=== PATIENT | female | born 1955 | race Caucasian/White ===

== ENCOUNTER 2018-10-04 20:00 | Inpatient (IN) ==
[2018-10-04 20:49] LABS: BASOPHILS % (AUTO) 0.3 % (0.2-1.0); EOSINOPHILS % (AUTO) 0.3 % (0.9-2.9); HEMOGLOBIN 11.4 g/dL (12.0-16.0); LYMPHOCYTES # (AUTO) 1.2 X10^3/uL (1.3-2.9); LYMPHOCYTES % (AUTO) 9.1 % (21.0-51.0); MEAN CORPUSCULAR HGB CONC 33.6 g/dL (33.0-35.0); MEAN CORPUSCULAR VOLUME 86.1 fL (80.0-100.0); MONOCYTES # (AUTO) 1.1 x10^3/uL (0.3-0.8); MONOCYTES % (AUTO) 8.1 % (0.0-13.0); NEUTROPHILS # (AUTO) 11.1 x10^3/uL (2.2-4.8); NEUTROPHILS % (AUTO) 82.2 % (42.0-75.0); PLATELET COUNT 392 X10^3/uL (150.0-450.0); RED BLOOD COUNT 3.95 X10^6/uL (3.5-5.4); RED CELL DISTRIBUTION WIDTH 13.3 % (11.6-16.5); WHITE BLOOD COUNT 13.4 X10^3/uL (3.6-10.0)
[2018-10-04 20:56] LABS: ALBUMIN 2.4 g/dL (3.4-5.0); CALCIUM 9.2 mg/dL (8.5-10.1); CARBON DIOXIDE 24.6 mmol/L (21-32); COR CA(FOR HYPOALB) 10.5 mg/dL (8.5-10.1); CREATININE 1.23 mg/dL (0.55-1.02); TOTAL PROTEIN 7.4 g/dL (6.4-8.2)
[2018-10-04] MEDS ORDERED: ROCEPHIN VIAL 1 GRAM IVP ONE (21:53)
[2018-10-04] MEDS ORDERED: NS 1000 ML 1,000 ML IV SCH (22:00)
--- NOTE | 2018-10-04 22:03 | DR.SOBA ---
HPI - Time Seen Time seen: 21:55 - Primary Care Physician Primary Care Physician: KARRIE - Complaints Chief Complaint Doctors Comments: Patient states she has had a cough, cold, wheezing for the past seven days with chills. States she is a patient of Dr. Pratt in [address] and she has diabetes but do not take any medicines for her diabetes. states they gave her a nebulizer treatment in the ambulance enroute to the emergency room and put her on oxygen. States she has had a "brain bleed" as related by family members and she was in [facility] and is to go back in the future. States she has had a biopsy of her lungs that did not show cancer. She denies tobacco or alcohol usage. Chief Complaint:: C/C/C, PRODUCTIVE COUGH-GREEN,YELLOW. FEVER O/S 1 WEEK AGO. PATIENT DENIES ANY PAIN. - Reviewed Nurses Notes Reviewed: Yes - Source History Provided: Patient, EMS - Mode of Arrival Mode of Arrival: EMS - Timing Onset of Chief Complaint: 09/27/18 - Duration Duration: Days (7) - Context Onset:: At Rest PE Risk Factors:: None History of:: None Currently on:: Neither Prehospital Care:: O2, Inhaled B2 - Modifying Factors Worsens:: Exertion Improves:: Nothing - Associated Signs and Symptoms Associated Signs and Symptoms: Fever, Wheeze, Cough, Sore Throat. denies: None, Nasal Congestion, Hemoptysis, Chest Pain, Leg Swelling, Calf Pain, Anxiety, Numbness, Perioral Numbness, Hands Numbness, Feet Numbness - If Chest Pain Quality: Sharp Location: Left Upper Chest, Chest Wall - If Cough Cough: Yellow PMH - PMH Past Medical History: Yes Past Medical History: [place], Coronary Artery Disease, Hypertension, Dyslipidemia, Diabetes, CVA, Kidney Stones Past Surgical History: Yes Surgical History: Abdominal Surgery, Angioplasty/Stents, Cholecystectomy, [employer] Surgery Past Surgical History Comment: TUBALIGATION - Family History History of Family Medical Conditions: Yes Family Medical History: [place], Coronary Artery Disease - Social History Does patient currently use any type of tobacco product: No Have you used tobacco products in the last 12 months: No Type of Tobacco Use: None Does any household member use tobacco: No Alcohol Use: None Do you use any recreational Drugs:: No Lives With: Family Lives Where: Home - infectious screening In the last 2 months have you had wt loss of >10#?: NO Have you had fever, night sweats or hemotysis?: No Have you traveled outside the country in the last 6 months?: No Isolation: Standard ROS - Review of Systems Constitutional: No Symptoms Reported, Fever, Weakness, Loss of Appetite Eyes: No Symptoms Reported ENTM: No Symptoms Reported Respiratoy: No Symptoms Reported, Productive Cough, Short of Breath, Wheezing. negative: See HPI, Non-Productive Cough, Moist Cough, Dry Cough, Hacking Cough, Barking Cough, Brassy Cough, Orthopnea, Stridor, Hemoptysis, Other Cardiovascular: No Symptoms Reported. negative: See HPI, Chest Pain, Edema, Palpitations, Syncope, Cyanosis, Skin Mottling, Other Gastrointestinal/Abdominal: No Symptoms Reported. negative: See HPI, Abdominal Pain, Constipation, Diarrhea, Nausea, Vomiting, Food Intolerance, Other Genitourinary: No Symptoms Reported Neurological: No Symptoms Reported. negative: See HPI, Anxiety, Depressed, Emotional Problems, Headache, Numbness, Paresthesia, Pre-existing Deficit, Seizure, Tingling, Tremors, Weakness, Dizziness, Problems Walking, Speech Problem, Other Musculoskeletal: No Symptoms Reported Integumentary: No Symptoms Reported. negative: See HPI, Change in Color, Change in Hair/Nails, Dryness, Lesions, Lumps, Rash, Itching, Wound, Bruises, Juandice, Other Hematologic/Lymphatic: No Symptoms Reported Endocrine: No Symptoms Reported Psychiatric: No Symptoms Reported. negative: See HPI, Anxiety, Depression, Hallucinations, Excessive crying, Suicidal, Other PE - General Limitations: No Limitations General Appearance: Alert, In Distress (moderate) - Head Head Exam: Normal Inspection, Atraumatic, Normocephalic - Eyes Eye exam: Normal Appearance, PERRL, EOMI. negative: Scleral Icterus, Conjunctival Injection, Nystagmus, Miosis, Mydrasis, Periorbital Swelling, Periorbital Tenderness, Other - ENT ENT Exam: Normal Exam, Normal Oropharynx, Normal External Ear Exam, Mucous Membranes Moist, TM's Normal Bilaterally - Neck Neck Exam: Normal Inspection, Full ROM, Trachea Midline. negative: Tenderness, Meningismus, Lymphadenopathy, Thyromegaly, Other - Chest Chest Inspection: Normal Inspection, Symmetric Chest Wall Rise. negative: Tenderness, Rash, Abscess, Other - Respiratory Respiratory Exam: Normal Lung Sounds Bilat, Prolonged Expiratory Phase Respiratory Exam: Bilateral Wheezing, Bilateral Decreased Breath Sounds - Cardiovascular Cardiovascular Exam: Regular Rate, Normal Rhythm, Normal Heart Sounds - Abdominal Exam Abdominal Exam: Normal Inspection, Normal Bowel Sounds, Soft. negative: Distention, Tenderness, Guarding, Rebound, Rigidity, Dimnished Bowel Sounds, Hyperactive Bowel Sounds, Hypoactive Bowel Sounds, Organomegaly, Trauma, Incision, Ascites, Mass, Bruit, Pulsatile Mass, Hernia, Other Abdominal Tenderness: negative: RUQ, RLQ, LUQ, LLQ, Epigastrium, Suprapubic, Diffuse, Mild, Moderate, Severe, Other - Extremities Extremities Exam: Normal Inspection, Full ROM, Normal Capillary Refill. negative: Tenderness, Edema, Joint Swelling, Calf Tenderness, Other - Back Back Exam: Normal Inspection, Full ROM. negative: Tenderness, (R) CVA Tenderness, (L) CVA Tenderness, Muscle Spasm, Paraspinal Tenderness, Vertebral Tenderness, Rashes, (R) Sciatic Notch Tenderness, (L) Sciatic Notch Tendern, (R) Straight Leg Raise, (L) Straight Leg Raise, Other - Neurologic Neurological Exam: Alert, Oriented X3, CN II-XII Intact, Normal Gait, Reflexes Normal - Psychiatric Psychiatric Exam: Normal Affect, Normal Mood - Skin Skin Exam: Warm, Dry, Intact, Normal Color - Vital Signs Vitals: Temperature 102.3 F Pulse Rate 95 Respiratory Rate 16 Blood Pressure [Left Arm] 187/86 Blood Pressure 182/86 O2 Sat by Pulse Oximetry 95 Course - Reevaluation 1st: Improved - Consultation Called: 22:47 Call Returned: 22:47 (Dr. Gordon to admit) - Education/Counseling Education/Counseling: Patient, Family Educated On: Treatment, Diagnosis, Needs for Follow Up ROR - Labs Reviewed Laboratory Results Reviewed?: Yes (All labs and x-ray results reviewed and discussed with patient) Result Diagrams: 10/04/18 20:34 10/04/18 20:34 - XRAY XRAY Interpreted by: Radiologist (CXR: Left lower lung opacity. Cardiomegaly and mild COPD. LLL pneumonia) - Labs Reviewed Laboratory: WBC 13.4 X10^3/uL (3.6-10.0) H 10/04/18 20:34 RBC 3.95 X10^6/uL (3.5-5.4) 10/04/18 20:34 Hgb 11.4 g/dL (12.0-16.0) L 10/04/18 20:34 Hct 34.0 % (36.0-47.0) L 10/04/18 20:34 MCV 86.1 fL (80.0-100.0) 10/04/18 20:34 MCH 29.0 pg (27.0-34.0) 10/04/18 20:34 MCHC 33.6 g/dL (33.0-35.0) 10/04/18 20:34 RDW 13.3 % (11.6-16.5) 10/04/18 20:34 Plt Count 392 X10^3/uL (150.0-450.0) 10/04/18 20:34 MPV 9.0 fL (7.4-11.0) 10/04/18 20:34 Neut % (Auto) 82.2 % (42.0-75.0) H 10/04/18 20:34 Lymph % (Auto) 9.1 % (21.0-51.0) L 10/04/18 20:34 Story % (Auto) 8.1 % (0.0-13.0) 10/04/18 20:34 Eos % (Auto) 0.3 % (0.9-2.9) L 10/04/18 20:34 Baso % (Auto) 0.3 % (0.2-1.0) 10/04/18 20:34 Neut # (Auto) 11.1 x10^3/uL (2.2-4.8) H 10/04/18 20:34 Lymph # (Auto) 1.2 X10^3/uL (1.3-2.9) L 10/04/18 20:34 Story # (Auto) 1.1 x10^3/uL (0.3-0.8) H 10/04/18 20:34 Eos # (Auto) 0.0 x10^3/uL (0.0-0.2) 10/04/18 20:34 Baso # (Auto) 0.0 X10^3/uL (0.0-0.1) 10/04/18 20:34 Absolute Nucleated RBC 0.0 /100WBC 10/04/18 20:34 Sodium 136 mmol/L (136-145) 10/04/18 20:34 Corrected Sodium 140 mmol/L (136-145) 10/04/18 20:34 Potassium 3.9 mmol/L (3.5-5.1) 10/04/18 20:34 Chloride 99 mmol/L (98-107) 10/04/18 20:34 Carbon Dioxide 24.6 mmol/L (21-32) 10/04/18 20:34 BUN 13 mg/dL (7-18) 10/04/18 20:34 Creatinine 1.23 mg/dL (0.55-1.02) H 10/04/18 20:34 Est GFR (MDRD) Af Amer 57 (>60) L 10/04/18 20:34 Est GFR (MDRD) Non-Af 47 (>60) L 10/04/18 20:34 Glucose 265 mg/dL (65-99) H 10/04/18 20:34 Lactic Acid 0.7 mmol/L (0.4-2.0) 10/04/18 20:35 Calcium 9.2 mg/dL (8.5-10.1) 10/04/18 20:34 Corrected Calcium 10.5 mg/dL (8.5-10.1) H 10/04/18 20:34 Total Bilirubin 0.30 mg/dL (0.2-1.0) 10/04/18 20:34 AST 80 Units/L (15-37) H 10/04/18 20:34 ALT 83 Units/L (12-78) H 10/04/18 20:34 Alkaline Phosphatase 247 Units/L (46-116) H 10/04/18 20:34 Total Protein 7.4 g/dL (6.4-8.2) 10/04/18 20:34 Albumin 2.4 g/dL (3.4-5.0) L 10/04/18 20:34 Globulin 5.0 g/dL (2.5-4.5) H 10/04/18 20:34 Albumin/Globulin Ratio 0.5 Ratio (1.1-2.1) L 10/04/18 20:34 Specimen Type Random urine 10/04/18 22:11 Urine Color Yellow (YELLOW) 10/04/18 22:11 Urine Appearance Clear (CLEAR) 10/04/18 22:11 Urine pH 6.5 (5.0 - 8.0) 10/04/18 22:11 Ur Specific [place] 1.010 (1.000-1.030) 10/04/18 22:11 Urine Protein 3+ (NEGATIVE) 10/04/18 22:11 Urine Glucose (UA) 3+ (NEGATIVE) 10/04/18 22:11 Urine Ketones Negative (NEGATIVE) 10/04/18 22:11 Urine Occult Blood 2+ (NEGATIVE) 10/04/18 22:11 Urine Nitrite Negative (NEGATIVE) 10/04/18 22:11 Urine Bilirubin Negative (NEGATIVE) 10/04/18 22:11 Urine Urobilinogen 1+ (NORMAL) 10/04/18 22:11 Ur Leukocyte Esterase Negative (NEGATIVE) 10/04/18 22:11 Urine RBC 3-5 /HPF (NONE SEEN) 10/04/18 22:11 Urine WBC None seen /HPF (NONE SEEN) 10/04/18 22:11 Ur Squamous Epith Cells Few /HPF (NEGATIVE) 10/04/18 22:11 Urine Bacteria Trace /HPF (NEGATIVE) 10/04/18 22:11 Ur Culture Indicated? No/not indicated 10/04/18 22:11 - Diagnosis Discharge Problem: COPD with acute exacerbation, Essential hypertension Pneumonia Qualifiers: Pneumonia type: due to unspecified organism Diabetes mellitus Qualifiers: Diabetes mellitus type: type 2 - Discharge Plan Disposition: 09 ADMITTED INPATIENT Condition: Stable - Follow ups/Referrals Follow ups/Referrals: NFD,None [Primary Care Provider] - 3 days - Instructions
[2018-10-04] MEDS ORDERED: ROCEPHIN VIAL 1 GRAM ONE (22:12)
[2018-10-04] MEDS ORDERED: SALINE 3% 15 ML NEB TX ONE (22:23)
[2018-10-04 22:27] LABS: BILIRUBIN,URINE NEGATIVE (NEGATIVE); BLOOD/HEMOGLOBIN,URINE 2+ (NEGATIVE); GLUCOSE, URINE 3+ (NEGATIVE); KETONES,URINE NEGATIVE (NEGATIVE); LEUKOCYTE ESTERASE ,URINE NEGATIVE (NEGATIVE); NITRITES,URINE NEGATIVE (NEGATIVE); PH,URINE 6.5 (5.0 - 8.0); PROTEIN,URINE 3+ (NEGATIVE); UROBILINOGEN,URINE 1+ (NORMAL)
--- NOTE | 2018-10-04 22:31 | RAD ---
Chest PA and lateral Indication: Coughing congestion. Findings: There is no pneumothorax. There is left lower lung opacity. Cardiomegaly and mild COPD background suggested. Impression: Left lower lung pneumonia favored. Follow-up to resolution to exclude underlying lesion. Reported By:
[2018-10-04 22:33] LABS: APPEARANCE,URINE CLEAR (CLEAR); BACTERIA,URINE TRACE /HPF (NEGATIVE); COLOR,URINE YELLOW (YELLOW); SQUAMOUS EPITHELIAL CELL,UR FEW /HPF (NEGATIVE)
[2018-10-04] MEDS ORDERED: SALINE 3% 15 ML NEB TX NEB ONE (22:34)
[2018-10-05] MEDS ORDERED: NS 1/2 1000 ML IV 1,000 ML ONE ×2 (00:16→16:13)
[2018-10-05] MEDS: NS 1/2 1000 ML IV 1,000 ML IV SCH ×2 (00:23→16:32)
[2018-10-05] MEDS: LEVAQUIN PREMIX IV 750 MG 750 MG/150 ML BAG IV SCH ×2 (00:23→23:21)
[2018-10-05] MEDS: TUSSIONEX PENNKINETIC SUSP PO PRN (00:41)
[2018-10-05 01:02] VITALS: BMI 22.8
[2018-10-05] MEDS ORDERED: TYLENOL 325 MG TAB PO ONE (01:14)
[2018-10-05] MEDS: TYLENOL 325 MG TAB PO PRN ×2 (01:23→09:53)
[2018-10-05] MEDS: DUONEB 0.5 MG/3 MG NEB SCH ×6 (01:55→21:01)
[2018-10-05 05:25] LABS: ALANINE AMINOTRANSFERASE 67 Units/L (12-78); ALKALINE PHOSPHATASE 211 Units/L (46-116); ASPARTATE AMINO TRANSFERASE 53 Units/L (15-37); BLOOD UREA NITROGEN 14 mg/dL (7-18); CALCIUM 8.7 mg/dL (8.5-10.1); CARBON DIOXIDE 25.8 mmol/L (21-32); CHLORIDE 101 mmol/L (98-107); COR CA(FOR HYPOALB) 10.3 mg/dL (8.5-10.1); COR NA(FOR HYPERGLY) 140 mmol/L (136-145); CREATININE 1.05 mg/dL (0.55-1.02); SODIUM 136 mmol/L (136-145); TOTAL PROTEIN 6.6 g/dL (6.4-8.2); eGFR NON BLACK RACES 56 (>60)
[2018-10-05 05:29] LABS: BASOPHILS # (AUTO) 0.1 X10^3/uL (0.0-0.1); BASOPHILS % (AUTO) 0.5 % (0.2-1.0); EOSINOPHILS % (AUTO) 0.1 % (0.9-2.9); HEMATOCRIT 31.1 % (36.0-47.0); HEMOGLOBIN 10.5 g/dL (12.0-16.0); LYMPHOCYTES # (AUTO) 1.2 X10^3/uL (1.3-2.9); LYMPHOCYTES % (AUTO) 9.8 % (21.0-51.0); MEAN CORPUSCULAR HEMOGLOBIN 29.6 pg (27.0-34.0); MEAN CORPUSCULAR HGB CONC 33.7 g/dL (33.0-35.0); MEAN CORPUSCULAR VOLUME 87.8 fL (80.0-100.0); MEAN PLATELET VOLUME 9.5 fL (7.4-11.0); MONOCYTES % (AUTO) 8.3 % (0.0-13.0); NEUTROPHILS # (AUTO) 9.9 x10^3/uL (2.2-4.8); NEUTROPHILS % (AUTO) 81.3 % (42.0-75.0); PLATELET COUNT 357 X10^3/uL (150.0-450.0); RED BLOOD COUNT 3.55 X10^6/uL (3.5-5.4); RED CELL DISTRIBUTION WIDTH 13.5 % (11.6-16.5); WHITE BLOOD COUNT 12.2 X10^3/uL (3.6-10.0)
[2018-10-05] MEDS: HumuLIN R SC PRN ×3 (06:16→22:00)
[2018-10-05 08:20] LABS: ABG ALLEN TEST POS; ABG BASE EXCESS 0.9 mmol/L (-2.0-2.0); ABG HCO3 26.6 mmol/L (22-26)
--- NOTE | 2018-10-05 09:09 | DR.H&P ---
H&P - History & Physical for Day of: H&P Date: 10/04/18 - Chief Complaint Chief Complaint: fever, ccc - History of Present Illness History of Present Illness: 63 WF ER ADMISSION WITH CO she has had a cough, cold, wheezing for the past seven days with chills. States she is a patient of Dr. Pratt in [place] and she has diabetes but do not take any medicines for her diabetes. states they gave her a nebulizer treatment in the ambulance enroute to the emergency room and put her on oxygen. States she has had a "brain bleed" as related by family members and she was in [facility] and is to go back in the future. States she has had a biopsy of her lungs that did not show cancer. She denies tobacco or alcohol usage. - Past Medical History Past Medical History: [place], Coronary Artery Disease, Hypertension, Dyslipidemia, Diabetes, CVA, Kidney Stones - Past Surgical History Surgical History: Other - Family History Family Medical History: Diabetes Mellitus, Cancer, [place] - Social History Does patient currently use any type of tobacco product: No Have you used tobacco products in the last 12 months: No Type of Tobacco Use: None Does any household member use tobacco: No Alcohol Use: None Drug Use: None - Medications Home Medications: No Known Drug Allergies Allergy (Verified 10/04/18 20:22) CONTINUE taking the following medications atorvastatin 40 mg PO QHS 10/04/18 [History] - Review of Systems Constitutional: Fever, Weakness Eyes: No Symptoms Reported ENT: No Symptoms Reported Respiratory: Cough, Sputum, Wheezing Cardiovascular: No Symptoms Reported Gastrointestinal: Nausea Genitourinary: No Symptoms Reported Musculoskeletal: No Symptoms Reported Skin: No Symptoms Reported Neurological: No Symptoms Reported - Physical Exam Vital Signs: Temperature 98.4 F Pulse Rate [Right] 65 Pulse Rate 70 Respiratory Rate 20 Blood Pressure [Right Arm] 105/51 Blood Pressure [Left Arm] 187/86 Blood Pressure 182/86 O2 Sat by Pulse Oximetry 95 Oriented: Normal Eyes: Normal Ear: Normal Nose: Normal Throat: Normal Respiratory: Rhonchi Throughout, RLL Diminished, LLL Diminished Cardiovascular: Normal : Normal Auscultation: Bowel Sounds: Normal Palpation: Normal Tenderness: Normal Skin: Normal Musculoskeletal: Normal Psychiatric: Normal Speech Pattern: Clear, Appropriate - Assessment/Plan (1) Pneumonia Qualifiers: Pneumonia type: due to unspecified organism Status: Acute Plan: PNEUMONIA PROTOCOL, IV ATBX. RESP THERAPY. SUPPLEMENTAL O2. SPUTUM, BLOOD CULTURE (2) COPD with acute exacerbation Status: Acute (3) Diabetes mellitus Qualifiers: Diabetes mellitus type: type 2 Status: Acute (4) Essential hypertension Status: Acute - Allergies Allergies/Adverse Reactions: Allergies Allergy/AdvReac Type Severity Reaction Status Date / Time No Known Drug Allergies Allergy Verified 10/04/18 20:22
[2018-10-05] MEDS ORDERED: PREVNAR 13 IM ONE (09:30)
[2018-10-05] MEDS: ROBITUSSIN DM PO SCH ×4 (09:34→21:17)
[2018-10-05] MEDS: ROCEPHIN VIAL 1 GRAM IVP SCH (09:35)
[2018-10-06] MEDS: DUONEB 0.5 MG/3 MG NEB SCH ×6 (00:35→20:40)
[2018-10-06] MEDS: NS 1/2 1000 ML IV 1,000 ML IV SCH ×3 (03:45→18:04)
[2018-10-06 04:51] LABS: BASOPHILS % (AUTO) 0.4 % (0.2-1.0); EOSINOPHILS # (AUTO) 0.1 x10^3/uL (0.0-0.2); EOSINOPHILS % (AUTO) 1.2 % (0.9-2.9); HEMATOCRIT 30.8 % (36.0-47.0); HEMOGLOBIN 10.3 g/dL (12.0-16.0); LYMPHOCYTES # (AUTO) 1.1 X10^3/uL (1.3-2.9); LYMPHOCYTES % (AUTO) 12.1 % (21.0-51.0); MEAN CORPUSCULAR HEMOGLOBIN 29.2 pg (27.0-34.0); MEAN CORPUSCULAR HGB CONC 33.4 g/dL (33.0-35.0); MEAN CORPUSCULAR VOLUME 87.4 fL (80.0-100.0); MONOCYTES # (AUTO) 0.7 x10^3/uL (0.3-0.8); MONOCYTES % (AUTO) 8.2 % (0.0-13.0); NEUTROPHILS % (AUTO) 78.1 % (42.0-75.0); PLATELET COUNT 378 X10^3/uL (150.0-450.0); RED BLOOD COUNT 3.52 X10^6/uL (3.5-5.4); RED CELL DISTRIBUTION WIDTH 13.6 % (11.6-16.5)
[2018-10-06 05:06] LABS: ALANINE AMINOTRANSFERASE 49 Units/L (12-78); ALBUMIN 1.9 g/dL (3.4-5.0); ALKALINE PHOSPHATASE 186 Units/L (46-116); ASPARTATE AMINO TRANSFERASE 27 Units/L (15-37); BLOOD UREA NITROGEN 13 mg/dL (7-18); CALCIUM 8.7 mg/dL (8.5-10.1); CHLORIDE 103 mmol/L (98-107); COR CA(FOR HYPOALB) 10.4 mg/dL (8.5-10.1); COR NA(FOR HYPERGLY) 140 mmol/L (136-145); CREATININE 0.97 mg/dL (0.55-1.02); SODIUM 138 mmol/L (136-145); TOTAL PROTEIN 6.4 g/dL (6.4-8.2); eGFR NON BLACK RACES > 60 (>60)
[2018-10-06] MEDS: HumuLIN R SC PRN ×3 (06:33→16:26)
--- NOTE | 2018-10-06 07:39 | CT ---
HISTORY: Pneumonia. COPD exacerbation. Questionable lesion on chest radiograph. Study: CT chest without contrast. Dose reduction techniques including Automated Exposure Control (AEC) and adjustment of mA and kV were utilized. Comparison: Chest radiograph dated 10/04/2018. Technique: Multiple axial images of the chest were obtained from the thoracic inlet to the upper abdomen without the administration of IV contrast. Findings: Examination is severely limited given the lack of intravenous contrast. Included portions of the thyroid are grossly unremarkable. There is atherosclerotic disease of the nonaneurysmal thoracic aorta. The heart is at the upper limits of normal in size with small pericardial effusion present. There is no mediastinal or hilar lymphadenopathy evident given the lack of intravenous contrast. Included portions of the upper abdomen demonstrate pneumobilia within the left hepatic lobe. There are calcifications of the visualized portions of the abdominal aorta and splenic artery. There is mild spondylosis of the mid to lower thoracic spine. No acute bony abnormality is evident. Evaluation of the lung parenchyma demonstrates scattered opacities within the posterior segment of the left upper lobe with more dense consolidation noted throughout the left lower lobe. An underlying mass is not excluded. There is a small left pleural effusion. IMPRESSION: Limited examination given the lack of intravenous contrast. Left lower lobe consolidation with patchy opacities in the left upper lobe most compatible with pneumonia. Underlying mass cannot be excluded and follow-up to complete resolution is recommended. Nonspecific pneumobilia involving the left hepatic lobe which can be seen in the setting of prior sphincterotomy. Clinical correlation is requested. Reported By:
[2018-10-06] MEDS ORDERED: NS 1/2 1000 ML IV 1,000 ML ONE (09:14)
[2018-10-06] MEDS: ROBITUSSIN DM PO SCH ×4 (09:17→21:30)
[2018-10-06] MEDS: ROCEPHIN VIAL 1 GRAM IVP SCH (09:18)
[2018-10-06] MEDS: LEVAQUIN PREMIX IV 750 MG 750 MG/150 ML BAG IV SCH (12:52)
[2018-10-06] MEDS ORDERED: LEVAQUIN PREMIX IV 750 MG 750 MG/150 ML BAG IV SCH (21:00)
[2018-10-06] MEDS: TYLENOL 325 MG TAB PO PRN (21:30)
[2018-10-07] MEDS: DUONEB 0.5 MG/3 MG NEB SCH ×6 (00:10→20:51)
[2018-10-07 05:22] LABS: BASOPHILS # (AUTO) 0.1 X10^3/uL (0.0-0.1); BASOPHILS % (AUTO) 0.8 % (0.2-1.0); EOSINOPHILS # (AUTO) 0.1 x10^3/uL (0.0-0.2); EOSINOPHILS % (AUTO) 1.9 % (0.9-2.9); HEMATOCRIT 31.3 % (36.0-47.0); HEMOGLOBIN 10.4 g/dL (12.0-16.0); LYMPHOCYTES # (AUTO) 1.1 X10^3/uL (1.3-2.9); LYMPHOCYTES % (AUTO) 13.7 % (21.0-51.0); MEAN CORPUSCULAR HEMOGLOBIN 29.2 pg (27.0-34.0); MEAN CORPUSCULAR HGB CONC 33.2 g/dL (33.0-35.0); MEAN CORPUSCULAR VOLUME 88.1 fL (80.0-100.0); MEAN PLATELET VOLUME 10.2 fL (7.4-11.0); MONOCYTES # (AUTO) 0.7 x10^3/uL (0.3-0.8); MONOCYTES % (AUTO) 8.6 % (0.0-13.0); NEUTROPHILS # (AUTO) 5.9 x10^3/uL (2.2-4.8); PLATELET COUNT 360 X10^3/uL (150.0-450.0); RED BLOOD COUNT 3.55 X10^6/uL (3.5-5.4); RED CELL DISTRIBUTION WIDTH 13.7 % (11.6-16.5); WHITE BLOOD COUNT 7.9 X10^3/uL (3.6-10.0)
[2018-10-07] MEDS ORDERED: NS 1/2 1000 ML IV 1,000 ML ONE (05:33)
[2018-10-07] MEDS: NS 1/2 1000 ML IV 1,000 ML IV SCH ×3 (05:37→22:00)
[2018-10-07 05:41] LABS: ALANINE AMINOTRANSFERASE 43 Units/L (12-78); ALKALINE PHOSPHATASE 172 Units/L (46-116); ASPARTATE AMINO TRANSFERASE 22 Units/L (15-37); BLOOD UREA NITROGEN 10 mg/dL (7-18); CALCIUM 8.9 mg/dL (8.5-10.1); CHLORIDE 105 mmol/L (98-107); COR CA(FOR HYPOALB) 10.5 mg/dL (8.5-10.1); COR NA(FOR HYPERGLY) 143 mmol/L (136-145); CREATININE 0.93 mg/dL (0.55-1.02); SODIUM 141 mmol/L (136-145); TOTAL PROTEIN 6.5 g/dL (6.4-8.2); eGFR NON BLACK RACES > 60 (>60)
[2018-10-07] MEDS ORDERED: POTASSIUM CHLORIDE LIQ 20 MEQ UDC PO PRN (05:57)
[2018-10-07] MEDS ORDERED: POTASSIUM CHL 60 MEQ/NS 0.45% 500 ML IV PRN (05:57)
[2018-10-07] MEDS ORDERED: MICRO K EXTEN CAP 10 MEQ PO PRN (05:57)
[2018-10-07] MEDS ORDERED: POTASSIUM CHL 40 MEQ/NS 0.45% 500 ML IV PRN (05:57)
[2018-10-07] MEDS ORDERED: K-RIDER 10 MEQ/NS 100 ML 10 MEQ/100 ML BAG IV PRN (05:57)
[2018-10-07] MEDS ORDERED: K-DUR TAB 20 MEQ PO PRN (05:57)
[2018-10-07] MEDS ORDERED: KLOR-CON PO PRN (05:57)
[2018-10-07] MEDS: LEVAQUIN PREMIX IV 750 MG 750 MG/150 ML BAG IV SCH (08:30)
[2018-10-07] MEDS: ROBITUSSIN DM PO SCH ×4 (08:30→21:15)
[2018-10-07] MEDS: ROCEPHIN VIAL 1 GRAM IVP SCH (08:31)
[2018-10-07] MEDS: HumuLIN R SC PRN (11:11)
[2018-10-07] MEDS: MAGNESIUM SULFATE 1 GRAM/100 mL PREMIX 1 GM/100 ML BAG IV PRN ×2 (11:12→16:20)
[2018-10-07] MEDS: MUCOMYST 20% 200 MG/ML NEB SCH ×4 (12:14→20:51)
--- NOTE | 2018-10-07 12:41 | CT ---
HISTORY: Headaches, old CVA Study: CT brain without contrast Comparison: 07/03/2018 Technique: Multiple axial images of the brain were obtained without administration of IV contrast. Dose reduction techniques including Automated Exposure Control (AEC) and adjustment of mA and kV were utilized. Findings: There is a chronic right MCA territory infarction. There is cerebral volume loss and nonspecific white matter hypoattenuation likely related to chronic microvascular ischemic changes. No evidence of acute hemorrhage, midline shift, mass effect or abnormal extra-axial fluid collection. The ventricular system is symmetric and nondilated. The soft tissues and osseous structures are unremarkable. The visualized paranasal sinuses are clear. No mass or abnormal enhancement is identified. There is calcified plaque in the carotid and vertebral arteries. IMPRESSION: 1. Chronic right MCA territory infarction and microvascular ischemic changes without acute intracranial abnormality. Reported By:
--- NOTE | 2018-10-07 12:53 | CT ---
HISTORY: Lesion on chest x-ray, abdominal pain Study: CT chest abdomen and pelvis with contrast Comparison: None Technique: Multiple axial images of the chest, abdomen, and pelvis were obtained after the administration of IV contrast. Dose reduction techniques including Automated Exposure Control (AEC) and adjustment of mA and kV were utilized. CT chest findings: Heart size is normal. There is dense left lower lobe consolidation again noted with additional scattered infiltrates in the left upper lobe. Mildly enlarged mediastinal nodes are present for example largest AP window node measuring 1.5 x 1.3 cm on axial image 28. No effusion or pneumothorax identified. Airways are grossly patent. Heart size is normal. No aortic aneurysm or dissection. The bony thorax appears intact. CT abdomen and pelvis findings: There is a peripherally enhancing collection of fluid and gas surrounding the spleen in the left upper quadrant with some additional loculated fluid suspected at the splenic hilum near the pancreatic tail. Findings are concerning for abscess measuring 7 x 2.8 x 6.7 cm. Infected hematoma or pseudocyst could look similar. No renal calculi or obstructive uropathy identified. Small amount of pneumobilia is again seen in the liver. Gallbladder is unremarkable. Pancreatic duct is mildly irregular at the tail without focal mass lesion. There is a 2.3 x 1.6 cm indeterminate left adrenal mass. No free intraperitoneal air. No evidence of intestinal obstruction or inflammation. Appendix not visualized. No ascites is seen. The soft tissues and osseous structures are unremarkable. The vascular structures are unremarkable. No pathologically enlarged lymph nodes are identified. Normal urinary bladder. IMPRESSION CHEST: 1. Left upper and lower lobe infiltrate suggestive of pneumonia with probable reactive mediastinal adenopathy. IMPRESSION ABDOMEN/PELVIS: 1. Peripherally enhancing collection of fluid and gas in the left upper quadrant surrounding the spleen extending into the splenic hilum near the pancreatic tail. Findings are concerning for abscess measuring 7 x 2.8 x 6.7 cm. Infected hematoma or pseudocyst could look similar. 2. Nonspecific pancreatic ductal irregularity at the pancreatic tail without focal mass identified. 3. Indeterminate left adrenal mass measuring 2.3 x 1.6 cm for which nonemergent adrenal protocol CT or contrast-enhanced MRI could provide better characterization. 4. Small amount of pneumobilia in the liver suggesting prior sphincterotomy, correlate clinically. Reported By:
[2018-10-07 14:42] LABS: AMYLASE 25 Units/L (25-115); LIPASE 78 Units/L (73-393)
--- NOTE | 2018-10-07 16:52 | RAD ---
History: Shortness of breath Study: AP chest Comparison: October 04 Findings: There is persistent left lower lobe basilar airspace disease. There is mild cardiomegaly as before. There is chronic diffuse interstitial lung disease. There is no obvious pleural effusion. Impression: Persistent left lower lobe pneumonia Reported By:
--- NOTE | 2018-10-07 17:06 | PCM.PROG ---
Progress Note - Progress Note for Day of Date of Exam: 10/05/18 - Subjective Subjective: 63 WF ER ADMISSION ON10/04 WITH LLE PNEUMONIA. PT STATE SHE WAS SEEN AT [facility] IN [place] FOR LEFT LUNG ABNORMALITY AND HAD BIOPSY. PT RECORDS FROM [place] REQUESTED. PT IS CURRENTLY ON IV ATBX, RESP THERAPY INCLUDING SUPPLEMENTAL O2. PT BLOOD CULTURES ON ADMISSION PENDING, SPUTUM UNCOLLECTED. PT CONTINUES TO CO WEAKNESS, ABG ORDERED. - Past Medical Family Social History Past Med/Fam/Surg Hx: No changes since H&P Allergies: Allergies No Known Drug Allergies Allergy (Verified 10/04/18 20:22) - Review of Systems ROS: No change since H&P - Vital Signs and I&O's Vital Signs: Temperature 98.2 F Pulse Rate [Right] 84 Pulse Rate 94 Respiratory Rate 20 Blood Pressure [Right Arm] 148/70 Blood Pressure [Left Arm] 187/86 Blood Pressure 182/86 O2 Sat by Pulse Oximetry 99 Intake and Output: Intake & Output 10/05/18 10/06/18 10/07/18 10/08/18 11:59 11:59 11:59 11:59 Intake Total 865 / 865 1800 / 1800 2280 / 2280 1120 / 1120 Output Total 1800 / 1800 1000 / 1000 Balance 865 / 865 0 / 0 2280 / 2280 120 / 120 - Physical Exam Oriented: Normal Eyes: Normal Ear: Normal Nose: Normal Throat: Normal Respiratory: Diminished, Wheezes, Rhonchi Cardiovascular: Normal : Normal Auscultation: Bowel Sounds: Normal Tenderness: Normal Skin: Normal Musculoskeletal: Normal Psychiatric: Normal Speech Pattern: Clear, Appropriate - Laboratory and Diagnostics Result Diagrams: 10/07/18 04:33 10/07/18 04:33 Labs: 10/07/18 14:22 Sputum - Expectorated Sputum - Final 10/04/18 20:35 Blood Blood Culture - Preliminary 10/04/18 20:34 Blood Blood Culture - Preliminary Laboratory WBC 7.9 X10^3/uL (3.6-10.0) 10/07/18 04:33 RBC 3.55 X10^6/uL (3.5-5.4) 10/07/18 04:33 Hgb 10.4 g/dL (12.0-16.0) L 10/07/18 04:33 Hct 31.3 % (36.0-47.0) L 10/07/18 04:33 MCV 88.1 fL (80.0-100.0) 10/07/18 04:33 MCH 29.2 pg (27.0-34.0) 10/07/18 04:33 MCHC 33.2 g/dL (33.0-35.0) 10/07/18 04:33 RDW 13.7 % (11.6-16.5) 10/07/18 04:33 Plt Count 360 X10^3/uL (150.0-450.0) 10/07/18 04:33 MPV 10.2 fL (7.4-11.0) 10/07/18 04:33 Neut % (Auto) 75.0 % (42.0-75.0) 10/07/18 04:33 Lymph % (Auto) 13.7 % (21.0-51.0) L 10/07/18 04:33 La[place] % (Auto) 8.6 % (0.0-13.0) 10/07/18 04:33 Eos % (Auto) 1.9 % (0.9-2.9) 10/07/18 04:33 Baso % (Auto) 0.8 % (0.2-1.0) 10/07/18 04:33 Neut # (Auto) 5.9 x10^3/uL (2.2-4.8) H 10/07/18 04:33 Lymph # (Auto) 1.1 X10^3/uL (1.3-2.9) L 10/07/18 04:33 Lares # (Auto) 0.7 x10^3/uL (0.3-0.8) 10/07/18 04:33 Eos # (Auto) 0.1 x10^3/uL (0.0-0.2) 10/07/18 04:33 Baso # (Auto) 0.1 X10^3/uL (0.0-0.1) 10/07/18 04:33 Absolute Nucleated RBC 0.0 /100WBC 10/07/18 04:33 Sample Site Lr 10/05/18 08:17 ABG pH 7.370 (7.35-7.45) 10/05/18 08:17 ABG pCO2 46.0 mmHg (35.0-45.0) H 10/05/18 08:17 ABG pO2 66.0 mmHg (80.0-100.0) L 10/05/18 08:17 ABG HCO3 26.6 mmol/L (22-26) H 10/05/18 08:17 ABG O2 Saturation 92.0 % (90-100) 10/05/18 08:17 ABG Base Excess 0.9 mmol/L (-2.0-2.0) 10/05/18 08:17 Damion Test Pos 10/05/18 08:17 A-a Gradient 26.0 mmHg 10/05/18 08:17 FiO2 21.0 10/05/18 08:17 Blood Gas Comments Pt rossana well. cdn 10/05/18 08:17 Sodium 141 mmol/L (136-145) 10/07/18 04:33 Corrected Sodium 143 mmol/L (136-145) 10/07/18 04:33 Potassium 3.5 mmol/L (3.5-5.1) 10/07/18 04:33 Chloride 105 mmol/L (98-107) 10/07/18 04:33 Carbon Dioxide 25.0 mmol/L (21-32) 10/07/18 04:33 BUN 10 mg/dL (7-18) 10/07/18 04:33 Creatinine 0.93 mg/dL (0.55-1.02) 10/07/18 04:33 Est GFR (MDRD) Af Amer > 60 (>60) 10/07/18 04:33 Est GFR (MDRD) Non-Af > 60 (>60) 10/07/18 04:33 Glucose 181 mg/dL (65-99) H 10/07/18 04:33 POC Glucose (mg/dL) 161 mg/dL (65-99) H 10/05/18 16:08 Lactic Acid 0.7 mmol/L (0.4-2.0) 10/04/18 20:35 Calcium 8.9 mg/dL (8.5-10.1) 10/07/18 04:33 Corrected Calcium 10.5 mg/dL (8.5-10.1) H 10/07/18 04:33 Magnesium 1.6 mg/dL (1.7-2.9) L 10/07/18 04:33 Total Bilirubin 0.30 mg/dL (0.2-1.0) 10/07/18 04:33 AST 22 Units/L (15-37) 10/07/18 04:33 ALT 43 Units/L (12-78) 10/07/18 04:33 Alkaline Phosphatase 172 Units/L (46-116) H 10/07/18 04:33 Total Protein 6.5 g/dL (6.4-8.2) 10/07/18 04:33 Albumin 2.0 g/dL (3.4-5.0) L 10/07/18 04:33 Globulin 4.5 g/dL (2.5-4.5) 10/07/18 04:33 Albumin/Globulin Ratio 0.4 Ratio (1.1-2.1) L 10/07/18 04:33 Amylase 25 Units/L (25-115) 10/07/18 04:33 Lipase 78 Units/L (73-393) 10/07/18 04:33 Specimen Type Random urine 10/04/18 22:11 Urine Color Yellow (YELLOW) 10/04/18 22:11 Urine Appearance Clear (CLEAR) 10/04/18 22:11 Urine pH 6.5 (5.0 - 8.0) 10/04/18 22:11 Ur Specific [place] 1.010 (1.000-1.030) 10/04/18 22:11 Urine Protein 3+ (NEGATIVE) 10/04/18 22:11 Urine Glucose (UA) 3+ (NEGATIVE) 10/04/18 22:11 Urine Ketones Negative (NEGATIVE) 10/04/18 22:11 Urine Occult Blood 2+ (NEGATIVE) 10/04/18 22:11 Urine Nitrite Negative (NEGATIVE) 10/04/18 22:11 Urine Bilirubin Negative (NEGATIVE) 10/04/18 22:11 Urine Urobilinogen 1+ (NORMAL) 10/04/18 22:11 Ur Leukocyte Esterase Negative (NEGATIVE) 10/04/18 22:11 Urine RBC 3-5 /HPF (NONE SEEN) 10/04/18 22:11 Urine WBC None seen /HPF (NONE SEEN) 10/04/18 22:11 Ur Squamous Epith Cells Few /HPF (NEGATIVE) 10/04/18 22:11 Urine Bacteria Trace /HPF (NEGATIVE) 10/04/18 22:11 Ur Culture Indicated? No/not indicated 10/04/18 22:11 Influenza Type A (PCR) Negative (NEGATIVE) 10/05/18 14:23 Influenza Type B (PCR) Negative (NEGATIVE) 10/05/18 14:23 S. pyogenes (TEM-PCR) Not detected (NOT DETECT) 10/04/18 22:11 - Plan (1) Pneumonia Status: Acute Qualifiers: Pneumonia type: due to unspecified organism Plan: PNEUMONIA PROTOCOL, IV ATBX. RESP THERAPY. SUPPLEMENTAL O2. SPUTUM, BLOOD CULTURE (2) COPD with acute exacerbation Status: Acute (3) Diabetes mellitus Status: Acute Qualifiers: Diabetes mellitus type: type 2 (4) Essential hypertension Status: Acute
[2018-10-07] MEDS: TYLENOL 325 MG TAB PO PRN (17:07)
--- NOTE | 2018-10-07 17:10 | PCM.PROG ---
Progress Note - Progress Note for Day of Date of Exam: 10/06/18 - Subjective Subjective: 63 WF ER ADMISSION ON10/04 WITH LLE PNEUMONIA. PT STATE SHE WAS SEEN AT [facility] IN [place] FOR LEFT LUNG ABNORMALITY AND HAD BIOPSY. PT RECORDS FROM [place] REQUESTED. PT IS CURRENTLY ON IV ATBX, RESP THERAPY INCLUDING SUPPLEMENTAL O2. CT CHEST REVEALING Left lower lobe consolidation with patchy opacities in the left upper lobe most compatible with pneumonia. Underlying mass cannot be excluded and follow-up to complete resolution is recommended.WBC 9.0 THIS AM, BUN 13, CREAT 0.97 - Past Medical Family Social History Past Med/Fam/Surg Hx: No changes since H&P Allergies: Allergies No Known Drug Allergies Allergy (Verified 10/04/18 20:22) - Review of Systems ROS: No change since H&P - Vital Signs and I&O's Vital Signs: Temperature 98.2 F Pulse Rate [Right] 84 Pulse Rate 94 Respiratory Rate 20 Blood Pressure [Right Arm] 148/70 Blood Pressure [Left Arm] 187/86 Blood Pressure 182/86 O2 Sat by Pulse Oximetry 99 Intake and Output: Intake & Output 10/05/18 10/06/18 10/07/18 10/08/18 11:59 11:59 11:59 11:59 Intake Total 865 / 865 1800 / 1800 2280 / 2280 1120 / 1120 Output Total 1800 / 1800 1000 / 1000 Balance 865 / 865 0 / 0 2280 / 2280 120 / 120 - Physical Exam Oriented: Normal Eyes: Normal Ear: Normal Nose: Normal Throat: Normal Respiratory: Diminished, Wheezes, Rhonchi Cardiovascular: Normal : Normal Auscultation: Bowel Sounds: Normal Tenderness: Normal Skin: Normal Musculoskeletal: Normal Psychiatric: Normal Speech Pattern: Clear, Appropriate - Laboratory and Diagnostics Result Diagrams: 10/07/18 04:33 10/07/18 04:33 Labs: 10/07/18 14:22 Sputum - Expectorated Sputum - Final 10/04/18 20:35 Blood Blood Culture - Preliminary 10/04/18 20:34 Blood Blood Culture - Preliminary Laboratory WBC 7.9 X10^3/uL (3.6-10.0) 10/07/18 04:33 RBC 3.55 X10^6/uL (3.5-5.4) 10/07/18 04:33 Hgb 10.4 g/dL (12.0-16.0) L 10/07/18 04:33 Hct 31.3 % (36.0-47.0) L 10/07/18 04:33 MCV 88.1 fL (80.0-100.0) 10/07/18 04:33 MCH 29.2 pg (27.0-34.0) 10/07/18 04:33 MCHC 33.2 g/dL (33.0-35.0) 10/07/18 04:33 RDW 13.7 % (11.6-16.5) 10/07/18 04:33 Plt Count 360 X10^3/uL (150.0-450.0) 10/07/18 04:33 MPV 10.2 fL (7.4-11.0) 10/07/18 04:33 Neut % (Auto) 75.0 % (42.0-75.0) 10/07/18 04:33 Lymph % (Auto) 13.7 % (21.0-51.0) L 10/07/18 04:33 [place] % (Auto) 8.6 % (0.0-13.0) 10/07/18 04:33 Eos % (Auto) 1.9 % (0.9-2.9) 10/07/18 04:33 Baso % (Auto) 0.8 % (0.2-1.0) 10/07/18 04:33 Neut # (Auto) 5.9 x10^3/uL (2.2-4.8) H 10/07/18 04:33 Lymph # (Auto) 1.1 X10^3/uL (1.3-2.9) L 10/07/18 04:33 [place] # (Auto) 0.7 x10^3/uL (0.3-0.8) 10/07/18 04:33 Eos # (Auto) 0.1 x10^3/uL (0.0-0.2) 10/07/18 04:33 Baso # (Auto) 0.1 X10^3/uL (0.0-0.1) 10/07/18 04:33 Absolute Nucleated RBC 0.0 /100WBC 10/07/18 04:33 Sample Site Lr 10/05/18 08:17 ABG pH 7.370 (7.35-7.45) 10/05/18 08:17 ABG pCO2 46.0 mmHg (35.0-45.0) H 10/05/18 08:17 ABG pO2 66.0 mmHg (80.0-100.0) L 10/05/18 08:17 ABG HCO3 26.6 mmol/L (22-26) H 10/05/18 08:17 ABG O2 Saturation 92.0 % (90-100) 10/05/18 08:17 ABG Base Excess 0.9 mmol/L (-2.0-2.0) 10/05/18 08:17 Damion Test Pos 10/05/18 08:17 A-a Gradient 26.0 mmHg 10/05/18 08:17 FiO2 21.0 10/05/18 08:17 Blood Gas Comments Pt rossana well. cdn 10/05/18 08:17 Sodium 141 mmol/L (136-145) 10/07/18 04:33 Corrected Sodium 143 mmol/L (136-145) 10/07/18 04:33 Potassium 3.5 mmol/L (3.5-5.1) 10/07/18 04:33 Chloride 105 mmol/L (98-107) 10/07/18 04:33 Carbon Dioxide 25.0 mmol/L (21-32) 10/07/18 04:33 BUN 10 mg/dL (7-18) 10/07/18 04:33 Creatinine 0.93 mg/dL (0.55-1.02) 10/07/18 04:33 Est GFR (MDRD) Af Amer > 60 (>60) 10/07/18 04:33 Est GFR (MDRD) Non-Af > 60 (>60) 10/07/18 04:33 Glucose 181 mg/dL (65-99) H 10/07/18 04:33 POC Glucose (mg/dL) 161 mg/dL (65-99) H 10/05/18 16:08 Lactic Acid 0.7 mmol/L (0.4-2.0) 10/04/18 20:35 Calcium 8.9 mg/dL (8.5-10.1) 10/07/18 04:33 Corrected Calcium 10.5 mg/dL (8.5-10.1) H 10/07/18 04:33 Magnesium 1.6 mg/dL (1.7-2.9) L 10/07/18 04:33 Total Bilirubin 0.30 mg/dL (0.2-1.0) 10/07/18 04:33 AST 22 Units/L (15-37) 10/07/18 04:33 ALT 43 Units/L (12-78) 10/07/18 04:33 Alkaline Phosphatase 172 Units/L (46-116) H 10/07/18 04:33 Total Protein 6.5 g/dL (6.4-8.2) 10/07/18 04:33 Albumin 2.0 g/dL (3.4-5.0) L 10/07/18 04:33 Globulin 4.5 g/dL (2.5-4.5) 10/07/18 04:33 Albumin/Globulin Ratio 0.4 Ratio (1.1-2.1) L 10/07/18 04:33 Amylase 25 Units/L (25-115) 10/07/18 04:33 Lipase 78 Units/L (73-393) 10/07/18 04:33 Specimen Type Random urine 10/04/18 22:11 Urine Color Yellow (YELLOW) 10/04/18 22:11 Urine Appearance Clear (CLEAR) 10/04/18 22:11 Urine pH 6.5 (5.0 - 8.0) 10/04/18 22:11 Ur Specific [place] 1.010 (1.000-1.030) 10/04/18 22:11 Urine Protein 3+ (NEGATIVE) 10/04/18 22:11 Urine Glucose (UA) 3+ (NEGATIVE) 10/04/18 22:11 Urine Ketones Negative (NEGATIVE) 10/04/18 22:11 Urine Occult Blood 2+ (NEGATIVE) 10/04/18 22:11 Urine Nitrite Negative (NEGATIVE) 10/04/18 22:11 Urine Bilirubin Negative (NEGATIVE) 10/04/18 22:11 Urine Urobilinogen 1+ (NORMAL) 10/04/18 22:11 Ur Leukocyte Esterase Negative (NEGATIVE) 10/04/18 22:11 Urine RBC 3-5 /HPF (NONE SEEN) 10/04/18 22:11 Urine WBC None seen /HPF (NONE SEEN) 10/04/18 22:11 Ur Squamous Epith Cells Few /HPF (NEGATIVE) 10/04/18 22:11 Urine Bacteria Trace /HPF (NEGATIVE) 10/04/18 22:11 Ur Culture Indicated? No/not indicated 10/04/18 22:11 Influenza Type A (PCR) Negative (NEGATIVE) 10/05/18 14:23 Influenza Type B (PCR) Negative (NEGATIVE) 10/05/18 14:23 S. pyogenes (TEM-PCR) Not detected (NOT DETECT) 10/04/18 22:11 - Plan (1) Pneumonia Status: Acute Qualifiers: Pneumonia type: due to unspecified organism Plan: PNEUMONIA PROTOCOL, IV ATBX. RESP THERAPY. SUPPLEMENTAL O2. SPUTUM, BLOOD CULTURES ORDERED ON ADMISSION (2) COPD with acute exacerbation Status: Acute Plan: DUE NEBS, O2 (3) Diabetes mellitus Status: Acute Qualifiers: Diabetes mellitus type: type 2 (4) Essential hypertension Status: Acute
--- NOTE | 2018-10-07 17:15 | PCM.PROG ---
Progress Note - Progress Note for Day of Date of Exam: 10/07/18 - Subjective Subjective: 63 WF ER ADMISSION ON 10/04 WITH LLE PNEUMONIA. PT STATE SHE WAS SEEN AT [facility] [place] FOR LEFT LUNG ABNORMALITY AND HAD BIOPSY. PT RECORDS FROM [place] REQUESTED. PT IS CURRENTLY ON IV ATBX, RESP THERAPY INCLUDING SUPPLEMENTAL O2. CT ABD/PELVIS ORDERED. PT HAS HX OF PANCREATITS AND WAS SENT TO [facility] IN [place] FOR SEVERAL WEEKS. WE ADDED AMYLASE AND LIPASE, RECORED REQUESTED. PT STARTED ON [employer] FOR SPUTUM PRODUCTION. PT STATES SHE DOES FEEL "A LITTLE BETTER TODAY" - Past Medical Family Social History Past Med/Fam/Surg Hx: No changes since H&P Allergies: Allergies No Known Drug Allergies Allergy (Verified 10/04/18 20:22) - Review of Systems ROS: No change since H&P - Vital Signs and I&O's Vital Signs: Temperature 98.2 F Pulse Rate [Right] 84 Pulse Rate 94 Respiratory Rate 18 Blood Pressure [Right Arm] 148/70 Blood Pressure [Left Arm] 187/86 Blood Pressure 182/86 O2 Sat by Pulse Oximetry 99 Intake and Output: Intake & Output 10/05/18 10/06/18 10/07/18 10/08/18 11:59 11:59 11:59 11:59 Intake Total 865 / 865 1800 / 1800 2280 / 2280 1120 / 1120 Output Total 1800 / 1800 1000 / 1000 Balance 865 / 865 0 / 0 2280 / 2280 120 / 120 - Physical Exam Oriented: Normal Eyes: Normal Ear: Normal Nose: Normal Throat: Normal Respiratory: Diminished, Wheezes, Rhonchi Cardiovascular: Normal : Normal Auscultation: Bowel Sounds: Normal Tenderness: Normal Skin: Normal Musculoskeletal: Normal Psychiatric: Normal Speech Pattern: Clear, Appropriate - Laboratory and Diagnostics Result Diagrams: 10/07/18 04:33 10/07/18 04:33 Labs: 10/07/18 14:22 Sputum - Expectorated Sputum - Final 10/04/18 20:35 Blood Blood Culture - Preliminary 10/04/18 20:34 Blood Blood Culture - Preliminary Laboratory WBC 7.9 X10^3/uL (3.6-10.0) 10/07/18 04:33 RBC 3.55 X10^6/uL (3.5-5.4) 10/07/18 04:33 Hgb 10.4 g/dL (12.0-16.0) L 10/07/18 04:33 Hct 31.3 % (36.0-47.0) L 10/07/18 04:33 MCV 88.1 fL (80.0-100.0) 10/07/18 04:33 MCH 29.2 pg (27.0-34.0) 10/07/18 04:33 MCHC 33.2 g/dL (33.0-35.0) 10/07/18 04:33 RDW 13.7 % (11.6-16.5) 10/07/18 04:33 Plt Count 360 X10^3/uL (150.0-450.0) 10/07/18 04:33 MPV 10.2 fL (7.4-11.0) 10/07/18 04:33 Neut % (Auto) 75.0 % (42.0-75.0) 10/07/18 04:33 Lymph % (Auto) 13.7 % (21.0-51.0) L 10/07/18 04:33 [place] % (Auto) 8.6 % (0.0-13.0) 10/07/18 04:33 Eos % (Auto) 1.9 % (0.9-2.9) 10/07/18 04:33 Baso % (Auto) 0.8 % (0.2-1.0) 10/07/18 04:33 Neut # (Auto) 5.9 x10^3/uL (2.2-4.8) H 10/07/18 04:33 Lymph # (Auto) 1.1 X10^3/uL (1.3-2.9) L 10/07/18 04:33 [place] # (Auto) 0.7 x10^3/uL (0.3-0.8) 10/07/18 04:33 Eos # (Auto) 0.1 x10^3/uL (0.0-0.2) 10/07/18 04:33 Baso # (Auto) 0.1 X10^3/uL (0.0-0.1) 10/07/18 04:33 Absolute Nucleated RBC 0.0 /100WBC 10/07/18 04:33 Sample Site Lr 10/05/18 08:17 ABG pH 7.370 (7.35-7.45) 10/05/18 08:17 ABG pCO2 46.0 mmHg (35.0-45.0) H 10/05/18 08:17 ABG pO2 66.0 mmHg (80.0-100.0) L 10/05/18 08:17 ABG HCO3 26.6 mmol/L (22-26) H 10/05/18 08:17 ABG O2 Saturation 92.0 % (90-100) 10/05/18 08:17 ABG Base Excess 0.9 mmol/L (-2.0-2.0) 10/05/18 08:17 Damion Test Pos 10/05/18 08:17 A-a Gradient 26.0 mmHg 10/05/18 08:17 FiO2 21.0 10/05/18 08:17 Blood Gas Comments Pt rossana well. cdn 10/05/18 08:17 Sodium 141 mmol/L (136-145) 10/07/18 04:33 Corrected Sodium 143 mmol/L (136-145) 10/07/18 04:33 Potassium 3.5 mmol/L (3.5-5.1) 10/07/18 04:33 Chloride 105 mmol/L (98-107) 10/07/18 04:33 Carbon Dioxide 25.0 mmol/L (21-32) 10/07/18 04:33 BUN 10 mg/dL (7-18) 10/07/18 04:33 Creatinine 0.93 mg/dL (0.55-1.02) 10/07/18 04:33 Est GFR (MDRD) Af Amer > 60 (>60) 10/07/18 04:33 Est GFR (MDRD) Non-Af > 60 (>60) 10/07/18 04:33 Glucose 181 mg/dL (65-99) H 10/07/18 04:33 POC Glucose (mg/dL) 161 mg/dL (65-99) H 10/05/18 16:08 Lactic Acid 0.7 mmol/L (0.4-2.0) 10/04/18 20:35 Calcium 8.9 mg/dL (8.5-10.1) 10/07/18 04:33 Corrected Calcium 10.5 mg/dL (8.5-10.1) H 10/07/18 04:33 Magnesium 1.6 mg/dL (1.7-2.9) L 10/07/18 04:33 Total Bilirubin 0.30 mg/dL (0.2-1.0) 10/07/18 04:33 AST 22 Units/L (15-37) 10/07/18 04:33 ALT 43 Units/L (12-78) 10/07/18 04:33 Alkaline Phosphatase 172 Units/L (46-116) H 10/07/18 04:33 Total Protein 6.5 g/dL (6.4-8.2) 10/07/18 04:33 Albumin 2.0 g/dL (3.4-5.0) L 10/07/18 04:33 Globulin 4.5 g/dL (2.5-4.5) 10/07/18 04:33 Albumin/Globulin Ratio 0.4 Ratio (1.1-2.1) L 10/07/18 04:33 Amylase 25 Units/L (25-115) 10/07/18 04:33 Lipase 78 Units/L (73-393) 10/07/18 04:33 Specimen Type Random urine 10/04/18 22:11 Urine Color Yellow (YELLOW) 10/04/18 22:11 Urine Appearance Clear (CLEAR) 10/04/18 22:11 Urine pH 6.5 (5.0 - 8.0) 10/04/18 22:11 Ur Specific [place] 1.010 (1.000-1.030) 10/04/18 22:11 Urine Protein 3+ (NEGATIVE) 10/04/18 22:11 Urine Glucose (UA) 3+ (NEGATIVE) 10/04/18 22:11 Urine Ketones Negative (NEGATIVE) 10/04/18 22:11 Urine Occult Blood 2+ (NEGATIVE) 10/04/18 22:11 Urine Nitrite Negative (NEGATIVE) 10/04/18 22:11 Urine Bilirubin Negative (NEGATIVE) 10/04/18 22:11 Urine Urobilinogen 1+ (NORMAL) 10/04/18 22:11 Ur Leukocyte Esterase Negative (NEGATIVE) 10/04/18 22:11 Urine RBC 3-5 /HPF (NONE SEEN) 10/04/18 22:11 Urine WBC None seen /HPF (NONE SEEN) 10/04/18 22:11 Ur Squamous Epith Cells Few /HPF (NEGATIVE) 10/04/18 22:11 Urine Bacteria Trace /HPF (NEGATIVE) 10/04/18 22:11 Ur Culture Indicated? No/not indicated 10/04/18 22:11 Influenza Type A (PCR) Negative (NEGATIVE) 10/05/18 14:23 Influenza Type B (PCR) Negative (NEGATIVE) 10/05/18 14:23 S. pyogenes (TEM-PCR) Not detected (NOT DETECT) 10/04/18 22:11 - Plan (1) Pneumonia Status: Acute Qualifiers: Pneumonia type: due to unspecified organism Plan: PNEUMONIA PROTOCOL, IV ATBX. RESP THERAPY. SUPPLEMENTAL O2. SPUTUM, BLOOD CULTURES ORDERED ON ADMISSION (2) COPD with acute exacerbation Status: Acute Plan: DUE NEBS, O2 (3) Diabetes mellitus Status: Acute Qualifiers: Diabetes mellitus type: type 2 (4) Essential hypertension Status: Acute (5) Pancreatic abnormality Status: Acute Plan: AMYLASE AND LIPASE
[2018-10-08] MEDS ORDERED: NS 1/2 1000 ML IV 1,000 ML ONE (00:37)
[2018-10-08] MEDS: DUONEB 0.5 MG/3 MG NEB SCH ×3 (01:26→08:46)
[2018-10-08 05:14] LABS: BASOPHILS % (AUTO) 0.4 % (0.2-1.0); EOSINOPHILS # (AUTO) 0.2 x10^3/uL (0.0-0.2); EOSINOPHILS % (AUTO) 2.5 % (0.9-2.9); HEMATOCRIT 31.1 % (36.0-47.0); HEMOGLOBIN 10.5 g/dL (12.0-16.0); LYMPHOCYTES # (AUTO) 1.2 X10^3/uL (1.3-2.9); LYMPHOCYTES % (AUTO) 14.2 % (21.0-51.0); MEAN CORPUSCULAR HEMOGLOBIN 29.5 pg (27.0-34.0); MEAN CORPUSCULAR HGB CONC 33.8 g/dL (33.0-35.0); MEAN CORPUSCULAR VOLUME 87.4 fL (80.0-100.0); MEAN PLATELET VOLUME 8.5 fL (7.4-11.0); MONOCYTES # (AUTO) 0.7 x10^3/uL (0.3-0.8); MONOCYTES % (AUTO) 7.7 % (0.0-13.0); NEUTROPHILS # (AUTO) 6.5 x10^3/uL (2.2-4.8); NEUTROPHILS % (AUTO) 75.2 % (42.0-75.0); PLATELET COUNT 471 X10^3/uL (150.0-450.0); RED BLOOD COUNT 3.56 X10^6/uL (3.5-5.4); RED CELL DISTRIBUTION WIDTH 13.9 % (11.6-16.5); WHITE BLOOD COUNT 8.6 X10^3/uL (3.6-10.0)
[2018-10-08 05:37] LABS: ALANINE AMINOTRANSFERASE 35 Units/L (12-78); ALBUMIN 2.1 g/dL (3.4-5.0); ALKALINE PHOSPHATASE 151 Units/L (46-116); ASPARTATE AMINO TRANSFERASE 20 Units/L (15-37); BLOOD UREA NITROGEN 9 mg/dL (7-18); CALCIUM 8.6 mg/dL (8.5-10.1); CARBON DIOXIDE 25.3 mmol/L (21-32); CHLORIDE 106 mmol/L (98-107); COR CA(FOR HYPOALB) 10.1 mg/dL (8.5-10.1); COR NA(FOR HYPERGLY) 143 mmol/L (136-145); MAGNESIUM 2.2 mg/dL (1.7-2.9); SODIUM 141 mmol/L (136-145); TOTAL PROTEIN 6.3 g/dL (6.4-8.2); eGFR NON BLACK RACES > 60 (>60)
[2018-10-08] MEDS: TUSSIONEX PENNKINETIC SUSP PO PRN (06:46)
[2018-10-08] MEDS: ROCEPHIN VIAL 1 GRAM IVP SCH (08:05)
[2018-10-08] MEDS: LEVAQUIN PREMIX IV 750 MG 750 MG/150 ML BAG IV SCH (08:05)
[2018-10-08] MEDS: ROBITUSSIN DM PO SCH (08:05)
[2018-10-08] MEDS: MUCOMYST 20% 200 MG/ML NEB SCH (08:46)
[2018-10-08 08:49] VITALS: BP 131/72
[2018-10-08] MEDS: NS 1/2 1000 ML IV 1,000 ML IV SCH (11:40)
== END 2018-10-08 12:10 | disposition home or self-care (01) | DRG 194 ==
LOC: ER 20:02 → MED/SURG 20:02
PROVIDERS: ADMIT Internal Medicine; ATTEND Internal Medicine
DX: J44.1 Chronic obstructive pulmonary disease with (acute) exacerbation; Z23 Encounter for immunization; R74.8 Abnormal levels of other serum enzymes; J18.8 Other pneumonia, unspecified organism; E11.65 Type 2 diabetes mellitus with hyperglycemia
CPT/HCPCS: 36415; 36600; 70470; 71010; 71020; 71045; 71046; 71250; 71260; 74177; 80053; 81001; 82150; 82803; 83605; 83690; 83735; 85025; 87040; 87070; 87205; 87502; 87651; 94640; 94669; 94760; 96365; 96367; 96374; 99231; 99284; A4222; 90670; G0378; J0696; J1815; J1956; J3475; J3490; J7030; J7620